=== PATIENT | male | born 1960 | race Caucasian/White ===

== ENCOUNTER 2023-09-12 07:00 | Day surgery (SDC) | payer OTHER | END 2023-09-12 10:10 | disposition home or self-care (01) | LOC: AMB-ENDOS 07:00 | PROVIDERS: ATTEND Colon & Rectal Surgery | DX: K29.00 Acute gastritis without bleeding (principal); K44.9 Diaphragmatic hernia without obstruction or gangrene; Z86.010 Personal history of colon polyps; K64.8 Other hemorrhoids; K92.1 Melena; Z12.11 Encounter for screening for malignant neoplasm of colon; Z20.822 Contact with and (suspected) exposure to COVID-19 ==